=== PATIENT | male | born 2000 | race Caucasian/White ===

== ENCOUNTER 2022-12-24 12:53 | Day surgery (SDC) | payer OTHER, SELFPAY ==
[2022-12-12 11:00] VITALS: BMI 42.3
--- NOTE | 2022-12-24 | PATH_ITS ---
[facility] Accession Number: [id number] No. of containers..01 Tissue . 01 Material submitted: . gluteal cleft - GLUTEAL CLEFT . 01 Diagnosis: Gluteal Cleft, Excision: Pilonidal cyst with acute inflammation and microabscess formation. MRV 12/31/2022 1743 Local . 01 Electronically signed: . Misty Simms MD, Dermatopathologist NPI- [id number] . 01 Gross description: . The specimen is received in formalin labeled with the patient's name, , and gluteal cleft, and consists of an unoriented ellipse of skin measuring 14.5 x 3.5 cm and excised to a depth of 3.7 cm. The margin is inked blue. Sectioning reveals a cystic structure filled with brown grumous material and hair measuring 7.2 cm in greatest dimension. A statement services representative section is submitted in cassette A1. ([id number]) /FRR 12/27/2022 1618 Local . 01 Pathologist provided ICD-10: L05.01 . 01 CPT . 330268 Specimen Comment: A courtesy copy of this report has been sent to [phone] Performed at: 01 [facility] [address] [place] [address] Suite [facility], [place], [place] [id number] MD Buster Diaz MD Phone: [phone]
[2022-12-24 13:13] VITALS: BP 133/82; PULSE 86; RESP 19; TEMP 36.3; O2SAT 98; BMI 41.5
[2022-12-24] MEDS: LACTATED RINGERS 1,000 ML 42 ML IV ×2 (13:38→16:39)
--- NOTE | 2022-12-24 14:25 | PM.PREOP ---
Pre-operative Note COVID-19 COVID-19 status: Not tested Interval Note History & Physical reviewed/Exam performed by Physician: Yes Changes to H&P: No ASA Class (for procedural sedation): II
--- NOTE | 2022-12-24 16:10 | SUR.OPER ---
Prone on padded OR bed, head in foam head support, gel chest rolls, gel pad under knees, pillow under lower legs, toes free of pressure, arms secured on padded arm boards at <90 degrees abduction. Safety belt at thigh.
[2022-12-24] MEDS: BUPIVACAINE 0.5% (PF) 10 ML VIAL INJ (16:30)
--- NOTE | 2022-12-24 16:33 | PM.OP.1 ---
Operative Date/Time/Diagnoses Date of procedure: 12/24/22 Time of procedure: 16:33 Pre-op diagnosis: Pilonidal disease Post-op diagnosis: same Procedure & Clinicians Procedure: Lisa procedure Same procedure as scheduled: Yes Surgeon: Srinivasa Ramires Staff Research Scientist: Kolby Ledbetter Anesthesia Type: General Operative Notes Procedure in detail: The patient was marked in preop and lines were drawn to delineate the gluteal cleft. The patient was then brought to the operating room and general endotracheal anesthesia was induced. The patient was placed prone on the or table. The buttocks were taped to the rails of the table. The gluteal cleft and anus were prepped with Betadine and draped in the usual fashion. A time-out was performed. We made the Lisa incision with the specimen including the gluteal cleft itself and skin to the right side of the gluteal cleft. We created a flap on the left side. There was some old fibrotic tissue in the subcutaneous tissue but no sarah purulence or chronic granulation tissue. We injected additional Marcaine in the deepest aspect of the wound as well as in the subcutaneous tissue. A 15 Citizen Of [place] round Niranjan drain was placed into the wound and brought out through a right gluteal stab incision. This drain was secured to the skin with a nylon stitch. The tape was then released and we proceeded to close the incision in layers using multiple interrupted 3-0 Vicryl sutures in the deep layers. The wound came together without tension and 3-0 Vicryl dermal sutures were used to bring the skin flaps together. Finally a running 4 Monocryl subcuticular stitch was used to close the skin and Dermabond was applied. The drain was connected to bulb suction. EBL: 10 mL Kolby MCCURDY provided assistance with exposure, retraction and closure of incisions. Post-operative Condition: stable Disposition: PACU
[2022-12-24] MEDS: SCOPOLAMINE 1 PATCH TOP (16:38)
[2022-12-24 17:10] VITALS: BP 96/44; PULSE 84; RESP 16; TEMP 36.9; O2SAT 93
[2022-12-24 17:15] VITALS: BP 90/41; PULSE 85; RESP 16; O2SAT 93
[2022-12-24 17:20] VITALS: BP 91/46; PULSE 82; RESP 16; O2SAT 92
[2022-12-24 17:35] VITALS: BP 99/46; PULSE 77; RESP 13; TEMP 37; O2SAT 92
[2022-12-24 18:46] VITALS: BP 120/69; PULSE 83; RESP 17; TEMP 36.6; O2SAT 98
== END 2022-12-24 19:19 | disposition home or self-care (01) ==
PROVIDERS: Referring Provider Surgery; Visit Provider Surgery
PROC: (CPT 11772; principal; 2022-12-24 14:15)
DX: L05.91 Pilonidal cyst without abscess (principal)
CPT/HCPCS: 11772; J0690; J1100; J1170; J1885; J2250; J2405; J2704; J3010; J3490